=== PATIENT | male | born 1995 | race Caucasian/White ===

== ENCOUNTER 2019-02-12 15:46 | Emergency (ER) | payer MEDICAID ==
[~2019-02-12] VITALS: Ht 162.6 cm; Wt 59.9 kg
[~2019-02-12 15:46] MED LIST: BEN50 PO; HC30CR25 TOP; PRED20TA PO
[2019-02-12 15:50] VITALS: BP 115/71; PULSE 80; RESP 16; Ht 162.6 cm; Wt 59.9 kg
== END 2019-02-12 16:48 | disposition home or self-care (01) ==
LOC: E/R 15:46
DX: R21 Rash and other nonspecific skin eruption (principal); T39.315A Adverse effect of propionic acid derivatives, initial encounter; Z87.891 Personal history of nicotine dependence
CPT/HCPCS: 99283